=== PATIENT | male | born 2000 | race Caucasian/White ===

== ENCOUNTER 2021-10-22 19:42 | Emergency (ER) | payer BC, OTHER ==
[~2021-10-22] VITALS: Ht 182.9 cm; Wt 104.5 kg
[2021-10-22] MEDS ORDERED: MORPHINE SULFATE 10 MG/ML SYRINGE. ONE (19:44)
--- NOTE | 2021-10-22 19:46 | PHYS DOC ---
General Adult EDM: Chief Complaint: KNEE INJURY HPI: HPI: " I got hurt in the football game to night at [facility]. ". " I dislocated my left knee.. but it has popped back.. ".. " It was a lateral dislocation"..." I have this once before" " but not this bad.." Patient is a 21` year old male [employer] student who presents with above hx and complaints of Lt knee lateral patella dislocation. Patient reports that and splinting and wrapping the lateral dislocation reduced. Currently patient localizes pain primary to knee area no upper leg tenderness no lower leg tenderness no other injury in the football game reported. Patient is able do a straight leg lift. Is un able to bend even minimally because of pain. Does have obvious edema. Patella appears to be self reduced. Distal neurovascular is equal to right leg. Patient currently a [employer] [facility] [employer]. Review of Systems: Review of Systems: Constitutional: Denies fever or chills Eyes: Denies change in visual acuity HENT: Denies nasal congestion or sore throat Respiratory: Denies cough or shortness of breath Cardiovascular: Denies chest pain or edema GI: Denies abdominal pain, nausea, vomiting, bloody stools or diarrhea : Denies dysuria Musculoskeletal: Complains of left knee lateral patellar dislocation Integument: Denies rash Neurologic: Denies headache, focal weakness or sensory changes Endocrine: Denies polyuria or polydipsia Lymphatic: Denies swollen glands Psychiatric: Denies depression or anxiety Family History: Family History: Noncontributory presentation Current Medications: Current Meds: See nursing for home meds Allergies: Allergies: No known drug allergies Physical Exam: PE: Constitutional: Well developed, well nourished, in acute distress, non-toxic appearance. [] HENT: Normocephalic, atraumatic, bilateral external ears normal, oropharynx moist, no oral exudates, nose normal. [] Eyes: PERRLA, EOMI, conjunctiva normal, no discharge. [] Neck: Normal range of motion, no tenderness, supple, no stridor. [] Cardiovascular:Heart rate regular rhythm, no murmur [] Lungs & Thorax: Bilateral breath sounds clear to auscultation [] Abdomen: Bowel sounds normal, soft, no tenderness, no masses, no pulsatile masses. [] Skin: Warm, dry, no erythema, no rash. [] Back: No tenderness, no CVA tenderness. [] Extremities: No tenderness, no cyanosis, no clubbing, ROM intact, no edema. [] Except for findings and left knee as per HPI Neurologic: Alert and oriented X 3, normal motor function, normal sensory function, no focal deficits noted. [] Psychologic: Affect anxious, judgement normal, mood normal. [] EKG: EKG: [] Radiology/Procedures: Radiology/Procedures: [[address] [address] IMAGING REPORT Signed PATIENT: NELSON CORTEZ ACCOUNT: [id number] : 2000 LOCATION: ER AGE: 21 SEX: M EXAM STATUS: REG ER ORD. PHYSICIAN: RIVERA ROMAN MD REASON: dislocation-football game, pain and swelling, unable to fully niles PROCEDURE: KNEE LEFT 4V Exam: Left knee 4 views INDICATION: Dislocated TECHNIQUE: Frontal, lateral and oblique views of the left knee Comparisons: None FINDINGS: There is a small lipohemarthrosis at the left knee. There is dislocation of the patella, which is displaced laterally. Bone mineralization is normal. No acute fractures identified. IMPRESSION: 1. Likely lateral subluxation of the patella which appears rotated on sunrise view. 2. Small ossific density projecting medially to the patella on sunrise view may relate to displaced fracture fragment. Donor site is not identified, however suspect medial patellofemoral ligament disruption. Consider orthopedic consultation/referral. 3. Small suprapatellar effusion. Electronically signed by: Festus Goodman MD (10/22/2021 9:07 PM) [facility] DICTATED AND SIGNED BY: FESTUS GOODMAN MD DATE: 10/22/212056 CC: RIVERA ROMAN MD; TRICIA MCCULLOUGH MD ~ ][address] [address] IMAGING REPORT Signed PATIENT: NELSON CORTEZ ACCOUNT: [id number] : 2000 LOCATION: ER AGE: 21 SEX: M EXAM STATUS: REG ER ORD. PHYSICIAN: RIVERA ROMAN MD REASON: dislocation-football game, pain and swelling, unable to fully niles PROCEDURE: KNEE LEFT 4V Exam: Left knee 4 views INDICATION: Dislocated TECHNIQUE: Frontal, lateral and oblique views of the left knee Comparisons: None FINDINGS: There is a small lipohemarthrosis at the left knee. There is dislocation of the patella, which is displaced laterally. Bone mineralization is normal. No acute fractures identified. IMPRESSION: 1. Likely lateral subluxation of the patella which appears rotated on sunrise view. 2. Small ossific density projecting medially to the patella on sunrise view may relate to displaced fracture fragment. Donor site is not identified, however suspect medial patellofemoral ligament disruption. Consider orthopedic consultation/referral. 3. Small suprapatellar effusion. Electronically signed by: Festus Goodman MD (10/22/2021 9:07 PM) [facility] DICTATED AND SIGNED BY: FESTUS GOODMAN MD DATE: 10/22/212056 CC: RIVERA ROMAN MD; TRICIA MCCULLOUGH MD ~ Heart Score: C/O Chest Pain: N/A Risk Factors: Risk Factors: DM, Current or recent (<one month) smoker, HTN, HLP, family history of CAD, obesity. Risk Scores: Score 0 - 3: 2.5% MACE over next 6 weeks - Discharge Home Score 4 - 6: 20.3% MACE over next 6 weeks - Admit for Clinical Observation Score 7 - 10: 72.7% MACE over next 6 weeks - Early Invasive Strategies Course & Med Decision Making: Course & Med Decision Making Pertinent Labs and Imaging studies reviewed. (See chart for details) Distal neurovascular intact after application of splint. Patient monitor for any compromise in circulation Patient use ice packs as needed. Wear splint. Use crutches. Elevate. Tylenol and ibuprofen for pain. Follow-up with Ortho of choice. If you have new Ortho consider follow-up with [facility] orthro- [phone]. Impression: 1. Lt Lateral Dislocation of Patella. 2. Fracture Fragments [] Dragon Disclaimer: Dragon Disclaimer: This electronic medical record was generated, in whole or in part, using a voice recognition dictation system. Dragon Disclaimer This chart was dictated in whole or in part using Voice Recognition software in a busy, high-work load, and often noisy Emergency Department environment. It may contain unintended and wholly unrecognized errors or omissions. Dragon Disclaimer This chart was dictated in whole or in part using Voice Recognition software in a busy, high-work load, and often noisy Emergency Department environment. It may contain unintended and wholly unrecognized errors or omissions. Dragon Disclaimer This chart was dictated in whole or in part using Voice Recognition software in a busy, high-work load, and often noisy Emergency Department environment. It may contain unintended and wholly unrecognized errors or omissions. RIVERA ROMAN MD Oct 22, 2021 19:46
[2021-10-22 19:58] VITALS: BP 115/57
[2021-10-22] MEDS ORDERED: MORPHINE SULFATE 10 MG/ML SYRINGE. SQ ONE (20:00)
--- NOTE | 2021-10-22 21:10 | RAD ---
Exam: Left knee 4 views INDICATION: Dislocated TECHNIQUE: Frontal, lateral and oblique views of the left knee Comparisons: None FINDINGS: There is a small lipohemarthrosis at the left knee. There is dislocation of the patella, which is dis placed laterally. Bone mineralization is normal. No acute fractures identified. IMPRESSION: 1. Likely lateral subluxation of the patella which appears rotated on sunrise view. 2. Small ossific density projecting medially to the patella on sunrise view may relate to displaced fracture fragment. Donor site is not identified, however suspect medial patellofemoral ligament disru ption. Consider orthopedic consultation/referral. 3. Small suprapatellar effusion. Electronically signed by: Festus Sapp MD (10/22/2021 9:07 PM) [facility]
== END 2021-10-22 22:34 | disposition home health service (06) ==
LOC: ER 19:42
DX: S82.002A Unspecified fracture of left patella, initial encounter for closed fracture (principal); X58.XXXA Exposure to other specified factors, initial encounter; Y93.61 Activity, american tackle football; Y92.89 Other specified places as the place of occurrence of the external cause; Y99.8 Other external cause status
CPT/HCPCS: 29505; 73564; 96372; 99285; J2270